=== PATIENT | male | born 1990 | race Two or more races ===

== ENCOUNTER 2022-06-12 19:28 | Emergency (ER) | payer SELFPAY ==
[2022-06-12 19:35] VITALS: BP 134/78; PULSE 84; RESP 16; TEMP 97.9; BMI 30.5
[2022-06-12] MEDS ORDERED: KETOROLAC TROMETHAMINE 30 MG/1 ML VIAL IM ONE (20:22)
[2022-06-12] MEDS ORDERED: KETOROLAC TROMETHAMINE 30 MG/1 ML VIAL ONE (20:48)
== END 2022-06-12 21:17 | disposition home or self-care (01) ==
LOC: JERFT 19:28
PROC: 3E023GC Introduction of Other Therapeutic Substance into Muscle, Percutaneous Approach (ICD-10-PCS; principal; 2022-06-12)
DX: S82.54XA Nondisplaced fracture of medial malleolus of right tibia, initial encounter for closed fracture (principal); Y99.8 Other external cause status
CPT/HCPCS: 73610-TC-RT-FY; 73630-TC-RT-FY; 99284-25